=== PATIENT | male | born 1975 | race Caucasian/White ===

== ENCOUNTER 2021-01-25 23:50 | Emergency (ER) | payer OTHER ==
[~2021-01-25] VITALS: Ht 182.9 cm; Wt 113.4 kg
[~2021-01-25 23:50] MED LIST: BUSPIRONE HCL10 MG PO; LEXAPRO20 MG PO; VYVANSE40 M1 PO
[2021-01-26 00:48] LABS: ABSOLUTE BASOPHILS 0.1 thou/uL (0.0-0.2); ABSOLUTE EOSINOPHILS 0.3 thou/uL (0.0-0.7); ABSOLUTE LYMPHOCYTES 1.5 thou/uL (0.8-5.3); ABSOLUTE MONOCYTES 0.7 thou/uL (0.0-1.2); BASOPHILS 1.2 %; EOSINOPHILS 2.6 %; HEMATOCRIT 42.1 % (42.0-52.0); HEMOGLOBIN 14.2 gm/dL (14.0-18.0); LYMPHOCYTES 13.7 %; MCHC 33.8 g/dL (28.0-37.0); MCV 85.9 fL (80.0-100.0); NUCLEATED RBCS 0 /100WBC; PLATELET COUNT* 335 thou/uL (150-400); POLYS 75.5 %; RDW-CV 13.7 % (10.5-14.5); WBC 10.6 thou/uL (4.0-11.0)
[2021-01-26 01:08] LABS: CALCIUM 8.5 mg/dL (8.5-10.1); CREATININE 1.3 mg/dL (0.6-1.3); POTASSIUM 3.6 mmol/L (3.5-5.1)
[2021-01-26 01:12] LABS: ALBUMIN 3.6 g/dL (3.4-5.0); TOTAL BILIRUBIN 0.3 mg/dL (<0.1-1.0); TOTAL PROTEIN 6.7 g/dL (6.4-8.2)
[2021-01-26 02:05] LABS: URINE BILIRUBIN NEGATIVE (Negative); URINE BLOOD NEGATIVE (Negative); URINE CLARITY CLEAR; URINE COLOR YELLOW; URINE GLUCOSE-RANDOM NEGATIVE (Negative); URINE KETONES TRACE (Negative); URINE LEUKOCYTES-REFLEX NEGATIVE (Negative); URINE NITRITE-REFLEX NEGATIVE (Negative); URINE PROTEIN NEGATIVE (Negative); URINE UROBILINOGEN 0.2 E.U./dl (0.2-1.0)
[2021-01-26 02:13] LABS: AMP/METHAMP Negative (Negative); BARBITURATES Negative (Negative); BENZODIAZEPINES Negative (Negative); COCAINE Negative (Negative); METHADONE Negative (Negative); OPIATES Negative (Negative); PCP Negative (Negative); THC Negative (Negative)
--- NOTE | 2021-01-26 09:43 | EKG ---
[place] [address] ELECTROCARDIOGRAM REPORT Name: VENUS BOLDEN Room: [facility]#: [id number] Admission: 01/25/21 Attend Phys: Discharge: Date of : 75 Date of Service: 01/25/215 Report #: [id number] THIS REPORT FOR: //name// [facility] ED Test Date: 2021-01-25 Test Time: 23:55:47 Pat Name: VENUS BOLDEN Department: Room: Gender: Sorting Machine Operator: [place] [id number] : 1975 Requested By: Lindy Villanueva Order Number: [id number] MD: Deacon Savage Measurements Intervals Melvin Rate: 83 P: 25 WI: 166 QRS: 14 QRSD: 87 T: 27 QT: 365 QTc: 429 Interpretive Statements Sinus arrhythmia Probable left atrial enlargement No previous ECG available for comparison Electronically Signed On 01-26-2021 9:43:07 CDT by Deacon Savage [email or web address] <ELECTRONICALLY SIGNED> By: Deacon Savage MD, [facility] 01/26/21 0943 [id number] Deacon Savage MD, FACC /EPI
[2021-01-26 20:28] VITALS: BP 127/73
== END 2021-01-26 20:45 | disposition home or self-care (01) ==
LOC: M.ERS 23:50
PROVIDERS: Emergency Medicine
DX: F29 Unspecified psychosis not due to a substance or known physiological condition (principal); Z20.822 Contact with and (suspected) exposure to COVID-19; R41.82 Altered mental status, unspecified; F41.9 Anxiety disorder, unspecified; F90.9 Attention-deficit hyperactivity disorder, unspecified type; Z77.090 Contact with and (suspected) exposure to asbestos; Z91.013 Allergy to seafood; Z79.899 Other long term (current) drug therapy